=== PATIENT | male | born 1975 | race Hispanic/Latino ===

== ENCOUNTER 2019-03-12 20:21 | Emergency (ER) | payer SELFPAY ==
[2019-03-12 22:57] LABS: Absolute Lymphocytes (CBC) 3.6 K/uL (0.7-4.9); Basophils % 0.7 % (0-1.3); Hematocrit 44.9 % (39.6-49.0); Lymphocytes % 18.5 % (15.3-44.8); MPV 9.3 fL (7.6-11.3); RBC Red Blood Cell Count 4.76 M/uL (4.33-5.43)
[2019-03-12] MEDS ORDERED: ONDANSETRON 4 MG/2 ML VIAL ONE (22:57)
[2019-03-12] MEDS ORDERED: MORPHINE 4 MG/ML SYR ONE (22:57)
[2019-03-12 23:14] LABS: ALT/SGPT 26 U/L (12-78); AST/SGOT 17 U/L (15-37); Albumin 3.9 g/dL (3.4-5.0); Alkaline Phosphatase 128 U/L (45-117); BUN Blood Urea Nitrogen 16 mg/dL (7-18); Bicarbonate 30 mmol/L (21-32); Bilirubin Direct < 0.1 mg/dL (0-0.2); Bilirubin Total 0.2 mg/dL (0.2-1.0); Glucose Level 79 mg/dL (74-106); Lipase 98 U/L (73-393); Potassium 3.9 mmol/L (3.5-5.1); Protein, Total 7.4 g/dL (6.4-8.2); Sodium Level 140 mmol/L (136-145)
[2019-03-13] MEDS ORDERED: KETOROLAC 30 MG/ML INJ ONE (01:40)
--- NOTE | 2019-03-13 02:00 | EDPHYS ---
Physician Documentation [facility] Name: Ector Acosta Age: 43 yrs Sex: Male : 1975 Arrival Date: 03/12/2019 Time: 20:24 Bed 30 Private MD: ED Physician Griffin Del Toro HPI: 03/12 22:08 This 43 yrs old Male presents to ER via Ambulatory with complaints of jmm Abdominal Pain. 22:08 The patient presents with abdominal pain. Onset: The symptoms/episode began/occurred jmm gradually, 1 week(s) ago. The symptoms radiate to right back. Associated signs and symptoms: Pertinent positives: diarrhea, Pertinent negatives: fever. The symptoms are described as achy. This is a 43 year old male with no known chronic medical conditions that presents to the ED with complaints of right sided abdominal pain beginning 1 week ago, worsening today with diarrhea. Denies scrotal pain. . 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 - Social history:: Smoking status: Patient uses tobacco products, denies chronic smoking, but will smoke occasionally. - Ebola Screening: : Patient denies travel to an Ebola-affected area in the 21 days before illness onset. ROS: 22:08 Constitutional: Negative for fever, chills, and weight loss, Cardiovascular: Negative jmm for chest pain, palpitations, and edema, Respiratory: Negative for shortness of breath, cough, wheezing, and pleuritic chest pain. 22:08 Abdomen/GI: Positive for abdominal pain. 22:08 All other systems are negative. Exam: 22:08 Constitutional: This is a well developed, well nourished patient who is awake, alert, jmm and in no acute distress. Head/Face: atraumatic. Eyes: EOMI, no conjunctival erythema appreciated ENT: Moist Mucus Membranes Neck: Trachea midline, Supple Chest/axilla: Normal chest wall appearance and motion. Cardiovascular: Regular rate and rhythm. No edema appreciated Respiratory: Normal respirations, no respiratory distress appreciated 22:08 Back: Normal ROM Skin: General appearance color normal MS/ Extremity: Moves all extremities, no obvious deformities appreciated, no edema noted to the lower extremities Neuro: Awake and alert, normal gait Psych: Behavior is normal, Mood is normal, Patient is cooperative and pleasant 22:08 Abdomen/GI: Inspection: abdomen appears normal, Bowel sounds: normal, Palpation: soft, mild abdominal tenderness, in the right lower quadrant. Vital Signs: 20:32 BP 122 / 78; Pulse 105; Resp 20; Temp 98.7; Pulse Ox 98% on R/A; Weight 64.41 kg (R); aj1 Height 5 ft. 6 in. (167.64 cm) (R); Pain 10/10; 22:00 BP 126 / 75; Pulse 100; Resp 16; Pulse Ox 99% ; tr5 03/13 00:30 BP 128 / 72; Pulse 72; Resp 15; Pulse Ox 99% on R/A; tr5 03/12 20:32 Body Mass Index 22.92 (64.41 kg, 167.64 cm) 1 MDM: 03/12 22:04 Patient medically screened. [facility] 03/13 01:55 Data reviewed: vital signs, nurses notes. Counseling: I had a detailed discussion with [facility] the patient and/or guardian regarding: the historical points, exam findings, and any diagnostic results supporting the discharge/admit diagnosis, lab results, radiology results, the need for outpatient follow up, to return to the emergency department if symptoms worsen or persist or if there are any questions or concerns that arise at home. ED course: Patient is alert and non toxic in appearance. Pain relieved in the ED. Ct negative. Patient given strict return precautions. Patient understood and agrees with the plan of care. . 03/12 22:07 Order name: Basic Metabolic Panel; Complete Time: 23:18 [facility] 03/12 22:07 Order name: CBC with Diff; Complete Time: 23:18 [facility] 03/12 22:07 Order name: Creatinine for Radiology; Complete Time: 23:18 [facility] 03/12 22:07 Order name: Hepatic Function; Complete Time: 23:18 [facility] 03/12 22:07 Order name: Lipase; Complete Time: 23:19 [facility] 03/13 01:23 Order name: Urine Dipstick--Ancillary (enter results); Complete Time: 02:16 [facility] 03/12 22:07 Order name: IV Saline Lock; Complete Time: 22:38 [facility] 03/12 22:07 Order name: Labs collected and sent; Complete Time: 22:38 [facility] 03/12 22:08 Order name: Urine Dipstick-Ancillary (obtain specimen); Complete Time: 01:05 [facility] 03/12 22:08 Order name: CT Abd/Pelvis - IV Contrast Only [facility] Administered Medications: 03/12 22:59 Drug: morphine 4 mg {Note: RASS:0.} Route: IVP; Site: right antecubital; tr5 23:31 Follow up: Response: Pain is decreased; RASS: Alert and Calm (0) tr5 22:59 Drug: Zofran 4 mg Route: IVP; Site: right antecubital; tr5 23:31 Follow up: Response: Marked relief of symptoms tr5 03/13 01:43 Drug: Ketorolac 30 mg Route: IVP; Site: right antecubital; tr5 01:43 Follow up: Response: Medication administered at discharge. tr5 Disposition: 08:03 Co-signature as Attending Physician, Griffin Del Toro MD I agree with the assessment and tw4 plan of care. Disposition: 03/13/19 01:59 Discharged to Home. Impression: Generalized abdominal pain, Diarrhea, unspecified. - Condition is Stable. - Discharge Instructions: Abdominal Pain, Adult, Food Choices to Help Relieve Diarrhea, Adult, Diarrhea, Adult. - Prescriptions for Bentyl 20 mg Oral Tablet - take 2 tablet by ORAL route every 6 hours As needed; 40 tablet. Ultracet 37.5- 325 mg Oral Tablet - take 1 tablet by ORAL route every 6 hours - for up to 5 days; do not exceed 8 tablets per day.; 12 tablet. - Medication Reconciliation Form, Thank You Letter, Antibiotic Education, Prescription Opioid Use form. - Follow up: Ashlie Bhatti MD; When: 2 - 3 days; Reason: Recheck today's complaints, Continuance of care, Re-evaluation by your physician. Signatures: Dispatcher [employer] Flores Corona RN RN aj1 Se Wallace PA PA jmm Wadley, Terrence, MD MD tw4 Josh Mendoza RN RN tr5 Corrections: (The following items were deleted from the chart) 02:16 01:59 03/13/2019 01:59 Discharged to Home. Impression: Generalized abdominal pain; tr5 Diarrhea, unspecified. Condition is Stable. Forms are Medication Reconciliation Form, Thank You Letter, Antibiotic Education, Prescription Opioid Use. Follow up: Ashlie Bhatti; When: 2 - 3 days; Reason: Recheck today's complaints, Continuance of care, Re-evaluation by your physician. deyvi
--- NOTE | 2019-03-13 02:00 | ER ---
Nurse's Notes [facility] Name: Ector Acosta Age: 43 yrs Sex: Male : 1975 Arrival Date: 03/12/2019 Time: 20:24 Bed 30 Private MD: Diagnosis: Generalized abdominal pain;Diarrhea, unspecified Presentation: 03/12 20:31 Presenting complaint: Patient states: RLQ abdominal pain that radiates to the back for aj1 the past week. Reports pain is worse today. Denies N/V/D. Denies fever. Transition of care: patient was not received from another setting of care. Onset of symptoms was 2018. Risk Assessment: Do you want to hurt yourself or someone else? Patient reports no desire to harm self or others. Initial Sepsis Screen: Does the patient meet any 2 criteria? No. Patient's initial sepsis screen is negative. Does the patient have a suspected source of infection? Yes: Acute abdominal pain. Care prior to arrival: None. 20:31 Method Of Arrival: Ambulatory aj 20:31 Acuity: CATRACHITO 3 aj1 Triage Assessment: 20:32 General: Appears in no apparent distress. uncomfortable, Behavior is calm, cooperative, aj1 appropriate for age. Pain: Complains of pain in right lower quadrant Pain does not radiate. Pain currently is 10 out of 10 on a pain scale. Neuro: Level of Consciousness is awake, alert, obeys commands. Cardiovascular: Patient's skin is warm and dry. Respiratory: Airway is patent Respiratory effort is even, unlabored, Respiratory pattern is regular, symmetrical. GI: Reports lower abdominal pain, Patient currently denies diarrhea, nausea, tolerance of food. 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 - Social history:: Smoking status: Patient uses tobacco products, denies chronic smoking, but will smoke occasionally. - Ebola Screening: : Patient denies travel to an Ebola-affected area in the 21 days before illness onset. Screenin:00 Abuse screen: Denies threats or abuse. Nutritional screening: No deficits noted. tr5 Tuberculosis screening: No symptoms or risk factors identified. Fall Risk None identified. Assessment: 23:00 General: Appears uncomfortable. Pain: Complains of pain in right lower quadrant Pain tr5 radiates to right low back. Neuro: Level of Consciousness is awake, alert, obeys commands, Oriented to person, place, time, Elevator Operator Service are equal bilaterally Moves all extremities. Cardiovascular: Heart tones present Capillary refill < 3 seconds Pulses are all present. Edema is absent. Respiratory: Airway is patent Respiratory effort is even, unlabored, Respiratory pattern is regular, symmetrical. GI: Bowel sounds present X 4 quads. Abd is soft Reports lower abdominal pain. : No signs and/or symptoms were reported regarding the genitourinary system. EENT: No signs and/or symptoms were reported regarding the EENT system. Derm: No signs and/or symptoms reported regarding the dermatologic system. Musculoskeletal: No signs and/or symptoms reported regarding the musculoskeletal system. 03/13 00:00 Reassessment: Patient appears in no apparent distress at this time. Patient and/or tr5 family updated on plan of care and expected duration. Pain level reassessed. Patient is alert, oriented x 3, equal unlabored respirations, skin warm/dry/pink. Vital Signs: 03/12 20:32 BP 122 / 78; Pulse 105; Resp 20; Temp 98.7; Pulse Ox 98% on R/A; Weight 64.41 kg (R); aj1 Height 5 ft. 6 in. (167.64 cm) (R); Pain 10/10; 22:00 BP 126 / 75; Pulse 100; Resp 16; Pulse Ox 99% ; tr5 03/13 00:30 BP 128 / 72; Pulse 72; Resp 15; Pulse Ox 99% on R/A; tr5 03/12 20:32 Body Mass Index 22.92 (64.41 kg, 167.64 cm) aj1 ED Course: 03/12 20:24 Patient arrived in ED. jg7 20:32 Triage completed. aj1 20:32 Arm band placed on Patient placed in waiting room, Patient notified of wait time. 1 21:37 Se Wallace PA is PHCP. [facility] 21:37 Griffin Del Toro MD is Attending Physician. [facility] 21:46 Josh Mendoza, KEREN is Primary Nurse. tr5 22:11 Radiology exam delayed due to lab results not completed at this time. (BUN/Creatinine). vm2 22:36 Initial lab(s) drawn, by me, sent to lab. Inserted saline lock: 20 gauge in right lt1 antecubital area, using aseptic technique. 22:42 Radiology exam delayed due to lab results not completed at this time. (BUN/Creatinine). vm2 23:00 Placed in gown. Bed in low position. Call light in reach. tr5 03/13 00:02 CT Abd/Pelvis - IV Contrast Only In Process Unspecified. EDMS 00:03 CT completed. Patient tolerated procedure well. Patient moved to CT via wheelchair. Patient moved back from CT. 01:59 Ashlie Bhatti MD is Referral Physician. [facility] 02:15 No provider procedures requiring assistance completed. IV discontinued. tr5 Administered Medications: 03/12 22:59 Drug: morphine 4 mg {Note: RASS:0.} Route: IVP; Site: right antecubital; tr5 23:31 Follow up: Response: Pain is decreased; RASS: Alert and Calm (0) tr5 22:59 Drug: Zofran 4 mg Route: IVP; Site: right antecubital; tr5 23:31 Follow up: Response: Marked relief of symptoms tr5 03/13 01:43 Drug: Ketorolac 30 mg Route: IVP; Site: right antecubital; tr5 01:43 Follow up: Response: Medication administered at discharge. tr5 Outcome: 01:59 Discharge ordered by MD. jm 02:15 Discharged to home ambulatory. tr5 02:15 Condition: stable 02:15 Discharge instructions given to patient, Instructed on discharge instructions, follow up and referral plans. medication usage, Demonstrated understanding of instructions, follow-up care, medications, Prescriptions given X 2. 02:16 Patient left the ED. tr5 Signatures: Dispatcher [employer] EDMS Flores Barrera RN RN aj1 Se Wallace PA PA jmm Hagler, Ervin eh McGuire, Victoria 2 Abbi Juarez 1 Josh Mendoza RN RN tr5 Lisbeth Parrishg7 Corrections: (The following items were deleted from the chart) 01:07 12 00:00 BP 128 / 72; Pulse 72bpm; Resp 15bpm; Pulse Ox 99% RA; tr5 tr5
[2019-03-13 02:12] LABS: Urine Blood NEGATIVE (NEG); Urine Glucose NEGATIVE (NEG); Urine Protein NEGATIVE (NEG); Urine Specific Gravity 1.015 (1.005-1.030)
[2019-03-13 02:24] VITALS: TEMP 98.7
[2019-03-13 02:26] VITALS: O2SAT 99
[2019-03-13 02:27] VITALS: BP 128/72
--- NOTE | 2019-03-13 10:53 | RAD REPORT ---
EXAM DESCRIPTION: CT - Abdomen Pelvis W Contrast - 03/13/2019 6:10 am CLINICAL HISTORY: Right lower quadrant pain. COMPARISON: None. TECHNIQUE: CT scan of the abdomen and pelvis was performed with IV contrast. This exam was performed according to our departmental dose-optimization program, which includes automated exposure control, adjustment of the mA and/or kV according to patient size and/or use of iterative reconstruction techn ique. FINDINGS: The lung bases are clear. No pleural or pericardial effusions. There has been a prior sple nectomy. The liver, gallbladder, pancreas, adrenal glands, and kidneys are normal. No hydronephrosis or urinary stones are seen. Unremarkable pelvic organs. No small bowel obstruction. The appendix is normal. No evidence of acute diverticulitis. No adenopath y, free fluid, or free air is identified. The aorta is normal caliber. The osseous structures are int act. IMPRESSION: No acute abdominal or pelvic findings. Electronically signed by: Benjamin Zuniga MD 03/13/2019 12:18 AM SENIOR [employer] Due to temporary technical issues with the PACS/Fluency reporting system, reports are being signed by the in house radiologist as a courtesy to ensure prompt reporting. The interpreting radiologist is f ully responsible for the content of the report.
== END 2019-03-13 02:16 | disposition home or self-care (01) ==
LOC: ER 20:21
DX: R19.7 Diarrhea, unspecified (principal)
CPT/HCPCS: 36415; 74177; 80048; 80076; 81003; 83690; 85025; 96374; 96375; 99284; J2405; Q9967